=== PATIENT | female | born 1970 | race Caucasian/White ===

== ENCOUNTER 2016-11-02 20:15 | Emergency (ER) | payer SELFPAY ==
--- NOTE | 2016-11-02 20:35 | ED Physician Documentation ---
Upper Extremity Injury - HISTORIAN Historian: patient - HPI Chief Complaint: Shoulder Injury/ Pain Additional Information: 46yo F here for R shoulder pain. Has h/o chronic dislocation. States had surgery to tighten joint and now less frequent. Fell today onto outstretched arm. Believes is may be back in now, but still with pain. All other systems reviewed and negative except per HPI. Onset: just prior to arrival Where: home Severity: mild Context: fall Associated Symptoms: denies: tingling, numbness distally, feeling loss, loss of power to arms - ROS CONST: no problems CVS/RESP: none NEURO: none MS/SKIN/LYMPH: other (R shoulder pain anterior humeral region. ) - PAST HX Past History: other (hypothyroid) Allergies/Adverse Reactions: Allergies Allergy/AdvReac Type Severity Reaction Status Date / Time No Allergy Information Allergy Unverified 11/02/16 20:49 Available Home Medications: Ambulatory Orders Medication Instructions Recorded Levothyroxine Sodium [Synthroid] 150 mcg PO D 11/02/16 - SOCIAL HX Smoking History: greater than 1 pack/day Alcohol Use: none Drug Use: none - FAMILY HX Family History: none - VITAL SIGNS Vital Signs: Vital Signs Temp Pulse Resp BP Pulse Ox 97 H 20 125/59 97 11/02/16 20:15 11/02/16 20:15 11/02/16 20:15 11/02/16 20:15 - REVIEWED ASSESSMENTS Nursing Assessment Reviewed: Yes Vitals Reviewed: Yes ED Results Lab/Radiology - Orders Orders: ED Orders Category Date Time Status SHOULDER 2 VIEWS OR MORE [RAD] Stat Exams 11/02/16 Taken Diph,Pertuss(Acell),Tet Vac/Pf [Adacel] Med 11/02/16 20:55 Discontinued 0.5 ml IM .ONCE ONE Upper Extremity Injury Physic - Physical Exam General Appearance: no acute distress Hand: normal inspection, non-tender, no evidence of injury Wrist: normal inspection, non-tender, no evidence of injury Elbow/Forearm: normal inspection, non-tender, no evidence of injury Shoulder: normal inspection, no evidence of injury. No: deformity, swelling Neuro/Vascular/Tendon: no vascular compromise, motor nml, sensation nml Skin: warm,dry Resp/CVS: chest non-tender, breath sounds nml, heart sounds nml Abdomen: non-tender Discharge Clincal Impression: Shoulder pain, acute Qualifiers: Laterality: right Qualified Code(s): M25.511 - Pain in right shoulder Referrals: Primary Doctor,No [Primary Care Provider] - 2 Days Additional Instructions: No dislocation, fx on xray. Motrin/tylenol recommended for pain. D/C stable condition. Home Medications: Ambulatory Orders Levothyroxine Sodium [Synthroid] 150 mcg PO D 11/02/16 Condition: Good Disposition: 01 HOME, SELF-CARE Decision to Admit: NO Decision Time: 21:01
[2016-11-02 20:49] VITALS: BP 125/59
[2016-11-02] MEDS ORDERED: DIPH,PERTUSS(ACELL),TET VAC/PF 0.5 ML DISP.SYRIN IM ONE (20:55)
[2016-11-02] MEDS ORDERED: AMOXICILLIN/POT 875/125 1 EACH PO ONE (21:23)
--- NOTE | 2016-11-03 00:08 | Diagnostic Imaging Report ---
Report Submission Date: Nov 02, 2016 8:56:46 PM PIGMENT PUSHER Patient ~ Study Name: DANUTA CALI ~ Date: Nov 02, 2016 8:34:53 PM PIGMENT PUSHER ~ Modality Type: CR Gender: F ~ Description: SHOULDER : 74 ~ Institution: [facility] Physician: CHERRI BARBOSA ~ ~ ~ ~ Right shoulder 3 views History: Pain after fall Findings: The right shoulder is normal without fracture, dislocation, arthropathy, or focal bone lesion. ~ Electronically signed on Nov 02, 2016 8:56:46 PM PIGMENT PUSHER by: Juve ALLEN
== END 2016-11-02 21:05 | disposition home or self-care (01) ==
LOC: ED 20:15
DX: M25.511 Pain in right shoulder (principal); Z23 Encounter for immunization
CPT/HCPCS: 73030; 90471; 99283

== ENCOUNTER 2017-03-02 10:59 | Emergency (ER) | payer SELFPAY ==
[2017-03-02] MEDS ORDERED: PROMETHAZINE HCL 25 MG/ML VIAL IM ONE (11:01)
[2017-03-02] MEDS ORDERED: KETOROLAC TROMETHAMINE 60 MG/2 ML VIAL IM ONE (11:54)
--- NOTE | 2017-03-02 13:47 | ED Physician Documentation ---
Headache - HISTORIAN Historian: patient - HPI Chief Complaint: Headache Onset: other (awoke this am-this h/a typoical mc for this pt) Timing: other (awoke w/h/a usually has aura) New Gradual Onset: No Exposure To: none Severity: moderate Quality: similar to previous Associated Symptoms: sensitivity to light. denies: fever, chills Preceding Symptoms: visual disturbance, scotoma (awoke) Exacerbated By: light, noise Further Comments: yes (records reveal massive refills oxycodone and tramadol) Last known Well Code/Unknown Code: Known - ROS NEURO/PSYCH: denies: confusion EYES/ENT: denies: sore throat, difficulty swallowing, sinus pain CVS/RESP: none GI/: denies: abdominal pain, diarrhea, problems urinating - PAST HX Medical History: migraines Surgical History: other (lap band pyloric stenosis as child open heart aortic stenosis gb appy) Allergies/Adverse Reactions: Allergies Allergy/AdvReac Type Severity Reaction Status Date / Time promethazine HCl Allergy Verified 03/02/17 11:57 [From Phenergan] Home Medications: Ambulatory Orders Medication Instructions Recorded Levothyroxine Sodium [Synthroid] 150 mcg PO 1T #30 tablet 03/02/17 - SOCIAL HX Smoking History: non-smoker Alcohol Use: none Drug Use: none - Family HX Family History: none - VITAL SIGNS Vital Signs: Vital Signs Temp Pulse Resp BP Pulse Ox 125/59 11/02/16 22:18 - REVIEWED ASSESSMENTS Nursing Assessment Reviewed: Yes Vitals Reviewed: Yes ED Results Lab/Radiology - Orders Orders: ED Orders Category Date Time Status CHEST 2 VIEW [CHEST P.A.&LAT 2 VIEWS] [RAD] Stat Exams 03/02/17 Taken Ketorolac Tromethamine [Toradol] Med 03/02/17 11:54 Discontinued 60 mg IM NOW ONE Levothyroxine Sodium [Synthroid] Med 03/03/17 07:00 Ordered 150 mcg PO 0700 Promethazine HCl [Phenergan] Med 03/02/17 11:01 Discontinued 25 mg IM NOW ONE EKG WITH COMPARISON Stat Ther 03/02/17 Ordered Headache Physical Exam - EXAM General Appearance: mild distress EENT: no facial swelling, eyes nml inspection Neck: normal inspection, thyroid normal Respiratory: no resp distress, chest non-tender, breath sounds normal CVS: reg. rate & rhythm, heart sounds nml Abdomen: No: tenderness Skin: color nml, no rash. No: cyanosis, diaphoresis, pallor Extremitites: non-tender, normal range of motion, no edema - NEURO/PSYCH Higher Functions: alert, oriented x3 Sensorimotor: motor nml, sensation nml Discharge Clincal Impression: HYPOTHYROID, OPOID WITHDRAWL Prescriptions: Levothyroxine Sodium [Synthroid] 150 mcg PO 1T #30 tablet Referrals: Primary Doctor,No [Primary Care Provider] - 2 Days Home Medications: Ambulatory Orders Levothyroxine Sodium [Synthroid] 150 mcg PO 1T #30 tablet 03/02/17 Comments: PT LATER ADMITS TO OPOID W/DRAWL-SHE REQUESTS NAMES OF REHAB OPTIONS Condition: Good Disposition: 01 HOME, SELF-CARE Decision to Admit: NO Decision Time: 13:46
[2017-03-02 13:49] VITALS: BP 142/72
--- NOTE | 2017-03-02 20:49 | Diagnostic Imaging Report ---
MAHI FREITAS [facility] [address] [facility].[address] [address] Report Submission Date: Mar 02, 2017 12:58:49 PM CDT Patient Study Name: DANUTA CALI Date: Mar 02, 2017 12:17:19 PM CDT Modality Type: CR Gender: F Description: CHEST : 74 Institution: [facility] Physician: MAHI FREITAS Chest - two views Clinical history: Cough and wheezing for 2 weeks. Findings: Examination of the chest in PA and lateral views with no prior film for comparison demonstrates lungs to be clear. Cardiovascular and mediastinal silhouettes are within normal limits. Monitor leads superimpose the chest. Impression: 1. No active disease. Electronically signed on Mar 02, 2017 12:58:49 PM CDT by: Gus ALLEN
[2017-03-03] MEDS ORDERED: LEVOTHYROXINE SODIUM 100 MCG TABLET PO SCH (07:00)
== END 2017-03-02 13:45 | disposition home or self-care (01) ==
LOC: ED 10:59
DX: E03.9 Hypothyroidism, unspecified (principal)
CPT/HCPCS: 71020; J1885; 96372; 99283

== ENCOUNTER 2017-04-09 04:01 | Emergency (ER) | payer SELFPAY ==
--- NOTE | 2017-04-09 04:09 | ED Physician Documentation ---
General Adult - HISTORIAN Historian: patient - HPI Stated Complaint: abd pain Chief Complaint: General Adult Onset: hours Timing: still present Severity: moderate Further Comments: yes (Pt is a 46 yo female with abd pain after eating at an airport in [place]. Pt has had n/v/diarrhea. Pt's friend ate with her and did not become ill. Pt has had a BTL and cholecystecomy. Pain comes in waves of greater and lesser intensity. No previous hx kidney stones.) - ROS CONST: no problems EYES/ENT: none CVS/RESP: none GI/: abdominal pain, vomiting, nausea MS/SKIN/LYMPH: none - PAST HX Past History: other (hypothyroidism) Surgeries/Procedures: BTL, cholecystectomy Allergies/Adverse Reactions: Allergies Allergy/AdvReac Type Severity Reaction Status Date / Time promethazine HCl Allergy Hives Verified 04/09/17 04:20 [From Phenergan] prochlorperazine AdvReac Rash Verified 04/09/17 04:20 [From Compazine] prochlorperazine edisylate AdvReac Rash Verified 04/09/17 04:20 [From Compazine] prochlorperazine maleate AdvReac Rash Verified 04/09/17 04:20 [From Compazine] Home Medications: Ambulatory Orders Medication Instructions Recorded Levothyroxine Sodium [Synthroid] 150 mcg PO 1T #30 tablet 03/02/17 - SOCIAL HX Smoking History: non-smoker - FAMILY HX Family History: No - VITAL SIGNS Vital Signs: Vital Signs Temp Pulse Resp BP Pulse Ox 142/72 03/02/17 13:47 - REVIEWED ASSESSMENTS Nursing Assessment Reviewed: Yes Vitals Reviewed: Yes Progress - Progress Progress: NS 1.5 L IVF bolus Zofran 4 mg IV Toradol 30 mg IV Dilaudid 1 mg IV Dilaudid 0.5 mg IV x 2 CT abd/pelvis w/o contrast: While there is no definite ureteral dilation, numerous pelvic calcifications project in the tract of the distal ureters, specifically on the left. Cannot completely exclude the possibility of a small distal ureteral calcification. Postcontrast delayed imaging would better evaluate the tract of the ureters and identify whether or not the pelvic calcifications represent phleboliths or possible distal ureterolithiasis. Urine dipstick: 1+ blood; 3+ ketone; 1+ protein; s.g. >1.030; leukocytes - neg Given pt's presentation, with sudden onset of pain; pt appearing very uncomfortable, moving about on the bed; pain occurring in waves of greater and lesser intensity; nausea; blood in urine without leukocytes; and lack of other finding on CT and labs, kidney stone seems likely diagnosis. Will tx for presumptive nephrolithiasis, and avoid subjecting pt to additional radiation studies. Rx Percocet (5/325). Take one or two every 4 to 6 hrs as needed for pain. #15 Rx Zofran ODT 4 mg. Take one every 6 to 8 hrs as needed for nausea/vomiting. # 10 Rx Tamsulosin 0.4 mg. Take one daily for 5 days or until kidney stone passes. Rx Bactrim DS. Take one ever 12 hrs for 5 days. General Adult Physical Exam - PHYSICAL EXAM GENERAL APPEARANCE: moderate distress EENT: pharynx normal NECK: normal inspection, supple RESPIRATORY: no resp distress, chest non-tender, breath sounds normal CVS: reg rate & rhythm, heart sounds normal ABDOMEN: soft, tenderness (L upper abd tenderness), decreased BS BACK: normal inspection, CVA tenderness (L) SKIN: warm/dry, normal color EXTREMITIES: non-tender, normal range of motion, no evidence of injury NEURO: oriented X3, motor nml, sensation nml Discharge Clincal Impression: probable nephrolithiasis Referrals: Primary Doctor,No [Primary Care Provider] - Home Medications: Ambulatory Orders Levothyroxine Sodium [Synthroid] 150 mcg PO 1T #30 tablet 03/02/17 Condition: Stable Disposition: 01 HOME, SELF-CARE Decision to Admit: NO Decision Time: 05:59
[2017-04-09] MEDS ORDERED: KETOROLAC TROMETHAMINE 30 MG/1ML VIAL ONE (04:14)
[2017-04-09] MEDS: ONDANSETRON HCL/PF 4 MG/ 2ML VIAL IVP ONE (04:15)
[2017-04-09] MEDS: KETOROLAC TROMETHAMINE 30 MG/1ML VIAL IVP ONE (04:16)
[2017-04-09] MEDS ORDERED: HYDROmorphone HCL/PF 1 MG/ML DISP.SYRIN ONE (04:23)
[2017-04-09 04:27] LABS: BASOPHILS % 0.7 (0.0-1.5); EOSINOPHILS % 0.4 % (0.0-6.8); MEAN CORPUSCULAR HEMOGLOBIN 31.8 pg (28.0-34.0); MEAN CORPUSCULAR VOLUME 94.7 fl (80.0-100.0); MONOCYTES % 2.7 % (0.0-11.0); NEUTROPHILS # 12.6 # k/uL (1.4-7.7)
[2017-04-09] MEDS: HYDROmorphone HCL/PF 1 MG/ML DISP.SYRIN IVP ONE ×4 (04:27→06:10)
[2017-04-09] MEDS: 0.9 % SODIUM CHLORIDE 1,000 ML IV ONE (04:37)
[2017-04-09 04:40] LABS: eGFR (African) > 60; eGFR (Non-African) > 60
[2017-04-09] MEDS ORDERED: 0.9 % SODIUM CHLORIDE 500 ML IV ONE (05:27)
[2017-04-09] MEDS: TAMSULOSIN HCL 0.4 MG CAP.ER.24H PO ONE (05:48)
[2017-04-09] MEDS: SULFAMETHOXAZOLE/TRIMETHOPRIM 1 EACH TABLET PO ONE (05:48)
[2017-04-09] MEDS: 0.9 % SODIUM CHLORIDE 500 ML IV ONE (06:15)
--- NOTE | 2017-04-09 06:17 | Diagnostic Imaging Report ---
KRISTINE JULIEN - LATASHA [facility] [address] [facility] [address] [place], [place]. [address] Report Submission Date: Apr 09, 2017 5:09:36 AM CDT Patient Study Name: DANUTA CALI Date: Apr 09, 2017 4:45:00 AM CDT Modality Type: CT\SR Gender: F Description: CT ABD & PELVIS W/O CO : 74 Institution: [facility] Physician: KRISTINE JULIEN Examination: CT Abdomen/pelvis History: Left flank discomfort Comparison exams: None available Technique: CT Abdomen/pelvis without contrast protocol. Findings: Renal cortical margins are symmetric. No cortical or calyceal calcification. Ureters described a normal course through the abdomen and pelvis. No abnormal dilation. Pelvic phleboliths. Some of the pelvic phleboliths project in the tract of the ureters - specifically on the left. Liver, spleen, adrenals, and pancreas are without gross irregularity. Surgical clips gallbladder fossa. Bowel unopacified limiting evaluation. No mesenteric inflammatory changes or free fluid. Osseous structures demonstrate degenerative changes. Lung bases without infiltrate. Impression: No nephrolithiasis. While there is no definite ureteral dilation, numerous pelvic calcifications project in the tract of the distal ureters, specifically on the left. Cannot completely exclude the possibility of a small distal ureteral calcification. Postcontrast delayed imaging imaging would better evaluate the tract of the ureters and identify whether not the pelvic calcifications represent phleboliths or possible distal ureterolithiasis. Electronically signed on Apr 09, 2017 5:09:36 AM CDT by: Ildefonso ALLEN
[2017-04-09 06:18] VITALS: BP 101/58
== END 2017-04-09 06:15 | disposition home or self-care (01) ==
LOC: ED 04:01
DX: R31.9 Hematuria, unspecified (principal); R10.9 Unspecified abdominal pain
CPT/HCPCS: 74176; 80053; 82150; 84703; 85025; A9270; J1170; J1885; J2405; J7030; J7060; 96361; 96374; 96375; 96376; 99283; S1016

== ENCOUNTER 2019-05-11 06:56 | Emergency (ER) | payer SELFPAY ==
--- NOTE | 2019-05-11 07:10 | ED Physician Documentation ---
Chest Pain - HISTORIAN Historian: patient - HPI Stated Complaint: chest pain Chief Complaint: Chest Pain Onset: days ago (1) Timing: gradual onset Duration: constant Last known Well Date: 05/10/19 Last Known Well Time: 08:00 Context: rest Severity: moderate Quality: pressure, burning, sharp Chest Pain Radiation: no radiation Chest Pain Signs/Symptoms: denies: nausea, vomiting, diaphoresis, cool extremit ies, dizziness, dyspnea, tachypnea, tachycardia, hypotension, palpitations, weakness Worsened By: nothing Relieved By: nothing Further Comments: yes (she states she "has been feeling like shit for a week now" when asked what she was feeling poorly about she states "just like shit" she states this am she started to have chest pain and she has pain in the left chest with no radiation or associated symptoms. She denies any injury. She has not taken her thyroid med in 6 months and she reports severe anxiety. She is not taking any meds for anxiety) - ROS CONST: none SKIN/ENDO: none NEURO/PSYCH: none - PAST HX IA risk factors: no pertinent history TAD/AAA risk factors: none Neuro deficit: none GI disease: none Surgeries/Procedures: other (tubal shoulder ) Immunizations: UTD Allergies/Adverse Reactions: Allergies Allergy/AdvReac Type Severity Reaction Status Date / Time promethazine HCl Allergy Hives Verified 05/11/19 07:12 [From Phenergan] prochlorperazine AdvReac Rash Verified 05/11/19 07:12 [From Compazine] Home Medications: Ambulatory Orders Medication Instructions Recorded Levothyroxine Sodium [Synthroid] 150 mcg PO 1T #30 tablet 03/02/17 - SOCIAL HX Smoking History: cigarettes Alcohol Use: none Drug Use: none - FAMILY HX Family HX: none - VITAL SIGNS Vital Signs: Vital Signs Temp Pulse Resp BP Pulse Ox 101/58 04/09/17 06:15 - REVIEWED ASSESSMENTS Nursing Assessment Reviewed: Yes Vitals Reviewed: Yes Progress - Progress Progress: 0910: discussed results and plan - she is agreeable DG ED Results Lab/Radiology - Radiology Radiology Impressions: Portable chest History: Chest pain Portable chest dated May 11, 2019 demonstrates a normal cardiomediastinal silhouette. Pulmonary vascularity is normal. Lungs are clear. Impression: No active disease. Electronically signed on May 11, 2019 7:52:13 AM CDT by: Hazel Veras Chest Pain Physical Exam - EXAM General Appearance: no acute distress, alert EENT: eye inspection normal, no signs of dehydration Neck: nml inspection Respiratory: no resp. distress, chest non-tender CVS: reg. rate & rhythm, pulses equal Abdomen: soft, normal bowel sounds, no distension Skin: warm/dry, normal color Extremities: non-tender, normal range of motion, no evidence of injury, no edema Neuro: oriented X3 Discharge Clincal Impression: Anxiety Chest pain Qualifiers: Chest pain type: unspecified Qualified Code(s): R07.9 - Chest pain, unspecified Hypothyroidism Qualifiers: Hypothyroidism type: other Qualified Code(s): E03.8 - Other specified hypothyroidism Referrals: Primary Doctor,No [Primary Care Provider] - 2 Days Comments: 1. Continue current meds 2. Due to med absence - levothyroxine will be restarted at 25 mcg until PCP appt 3. Hydroxizine 25 mg take 1 by mouth every 8 hours as needed for anxiety 4. Increase fluids 5. Follow up with PCP CHERELLE for thyroid concerns 6. Return to ER for any increasing concerns Condition: Stable Disposition: 01 HOME, SELF-CARE Decision to Admit: NO Date of Decison to Admit: 05/11/19 Decision Time: 09:15
[2019-05-11] MEDS: ASPIRIN 81 MG CHEW TAB PO ONE (07:32)
[2019-05-11 07:51] LABS: BASOPHILS % 0.5 % (0.0-1.5); NEUTROPHILS # 6.4 # k/uL (1.4-7.7)
[2019-05-11 08:17] LABS: eGFR (Non-African) > 60
[2019-05-11] MEDS: 0.9 % SODIUM CHLORIDE 1,000 ML IV ONE (08:20)
[2019-05-11] MEDS: KETOROLAC TROMETHAMINE 30 MG/1ML VIAL IV ONE (08:28)
[2019-05-11 09:55] VITALS: BP 133/79
--- NOTE | 2019-05-11 11:54 | Diagnostic Imaging Report ---
EMANI GRULLON [facility] [address] [facility] [address] [place], [place]. [address] Report Submission Date: May 11, 2019 7:52:13 AM CDT Patient Study Name: DANUTA CALI Date: May 11, 2019 7:14:54 AM CDT Modality Type: DX Gender: F Description: CHEST 1VIEW : 74 Institution: [facility] Physician: EMANI GRULLON Portable chest History: Chest pain Portable chest dated May 11, 2019 demonstrates a normal cardiomediastinal silhouette. Pulmonary vascularity is normal. Lungs are clear. Impression: No active disease. Electronically signed on May 11, 2019 7:52:13 AM CDT by: Hazel ALLEN
[2019-05-11 16:10] LABS: CANNABINOIDS NEGATIVE ng/mL (< 50); METHYLENEDIOXYMETHAMPHETAMINE NEGATIVE ng/mL (<500)
[2019-05-11 16:12] LABS: APPEARANCE,URINE CLEAR (CLEAR); COLOR,URINE YELLOW (YELLOW); OCCULT BLOOD,URINE NEGATIVE (NEGATIVE); UROBILINOGEN URINE 0.2 Eu (0.2-1.0)
[2019-05-14 13:34] LABS: T3-UPTAKE SCANNED REPORT
== END 2019-05-11 09:35 | disposition home or self-care (01) ==
LOC: ED 06:56
DX: F41.9 Anxiety disorder, unspecified (principal)
CPT/HCPCS: 71045; 80053; 80377; 81002; 82550; 84436; 84443; 84479; 84484; 85025; 93005; 96361; 96374; 99284; J1885; J7030; G0481; S1016